=== PATIENT | female | born 1975 | race Two or more races ===

== ENCOUNTER 2021-09-14 02:39 | Emergency (ER) | payer MEDICAID, OTHER ==
[~2021-09-14] VITALS: Ht 162.6 cm; Wt 59.0 kg
[2021-09-14 03:43] LABS: Basophils # (auto) 0.1 10 ^3/uL (0-0.2); Basophils % (auto) 1.2 % (0.0-2.0); Hemoglobin 9.3 g/dL (12.2-16.2); Lymphocytes # (auto) 1.1 10 ^3/uL (0.4-5.4); Monocytes # (auto) 0.4 10 ^3/uL (0-1.3); Neutrophils # (auto) 3.9 10 ^3/uL (1.6-8.6); Red Cell Distribution Width 19.7 % (11.8-14.3)
[2021-09-14 03:45] LABS: Eosinophils # (auto) 0 10 ^3/uL (0-0.8); Eosinophils % (auto) 0.8 % (0.0-7.0); Lymphocytes % (auto) 20.8 % (10.0-50.0); Mean Corpuscular Hemoglobin 19.8 pg (28.0-32.0); Mean Corpuscular Volume 66.1 fL (80.0-100.0); Monocytes % (auto) 6.9 % (0.0-12.0); Neutrophils % (auto) 70.3 % (37.0-80.0); White Blood Cell 5.5 10^3/uL (4.4-10.8)
[2021-09-14 04:09] LABS: Albumin 3.1 g/dL (3.4-5.0); Magnesium 1.9 mg/dL (1.6-2.6)
[2021-09-14 04:14] LABS: BUN/Creatinine Ratio 20.2; Bilirubin, Total 0.3 mg/dL (0.2-1.0); Total Protein 6.7 g/dL (6.4-8.2)
[2021-09-14] MEDS ORDERED: LABETALOL HCL 200 MG TAB PO ONE (04:15)
[2021-09-14] MEDS ORDERED: SODIUM CHLORIDE 0.9% 1,000 ML IV ONE (04:15)
[2021-09-14 05:44] LABS: Amphetamine Screen, Urine NEGATIVE (NEGATIVE); Barbiturate Scree,Urine NEGATIVE (NEGATIVE); Benzodiazephine Screen, Urine NEGATIVE (NEGATIVE); Cannabinoid Screen, Urine NEGATIVE (NEGATIVE); Cocaine Screen, Urine NEGATIVE (NEGATIVE); Opiate Scree,Urine NEGATIVE (NEGATIVE); Phencyclidine Screen, Urine NEGATIVE (NEGATIVE)
[2021-09-14 05:47] LABS: Urine Bacteria FEW /hpf (None Seen); Urine Blood Negative /uL (Negative); Urine Specific Gravity 1.028 (1.001-1.035); Urine WBC 2 /hpf (0 - 5)
[2021-09-14 06:00] VITALS: BP 150/94
[2021-09-14] MEDS ORDERED: POTASSIUM EFFERVESENT TAB 25 MEQ PO ONE (06:15)
[2021-09-14] MEDS ORDERED: metFORMIN HYDROCHLORIDE 500 MG TAB PO ONE (06:45)
== END 2021-09-14 06:58 | disposition home or self-care (01) ==
LOC: ER 02:39
DX: E11.65 Type 2 diabetes mellitus with hyperglycemia (principal); I10 Essential (primary) hypertension
CPT/HCPCS: 36415; 80053; 80307; 81001; 82010; 82962; 83735; 84484; 84702; 85025; 96360; 96361; 99285; J7030

== ENCOUNTER 2022-08-15 02:34 | Emergency (ER) | payer MEDICAID ==
[~2022-08-15] VITALS: Ht 162.6 cm; Wt 58.5 kg
[2022-08-15 05:17] LABS: Basophils # (auto) 0.1 10 ^3/uL (0-0.2); Basophils % (auto) 1.1 % (0.0-2.0); Eosinophils # (auto) 0.1 10 ^3/uL (0-0.8); Hematocrit 30.7 % (36.0-46.0); Hemoglobin 9.4 g/dL (12.2-16.2); Lymphocytes # (auto) 1.2 10 ^3/uL (0.4-5.4); Lymphocytes % (auto) 18.3 % (10.0-50.0); Mean Corpuscular Hemoglobin 18.1 pg (28.0-32.0); Mean Corpuscular Hgb Conc. 30.6 g/dL (32.0-36.0); Mean Corpuscular Volume 59.3 fL (80.0-100.0); Monocytes # (auto) 0.5 10 ^3/uL (0-1.3); Monocytes % (auto) 6.9 % (0.0-12.0); Neutrophils # (auto) 4.8 10 ^3/uL (1.6-8.6); Neutrophils % (auto) 72.7 % (37.0-80.0); Red Blood Cells 5.18 10^6/uL (4.0-5.20); White Blood Cell 6.6 10^3/uL (4.4-10.8)
[2022-08-15 05:18] LABS: Red Cell Distribution Width 20.8 % (11.8-14.3)
[2022-08-15 05:19] LABS: Urine Bacteria NONE SEEN /hpf (None Seen); Urine Blood 3+ /uL (Negative); Urine WBC 3 /hpf (0 - 5)
[2022-08-15 05:35] LABS: Potassium 3.5 mmol/L (3.5-5.1)
[2022-08-15 05:40] LABS: Albumin 3.4 g/dL (3.4-5.0); BUN/Creatinine Ratio 19.3; Calcium 8.6 mg/dL (8.5-10.1)
[2022-08-15 05:54] LABS: Bilirubin, Total 0.4 mg/dL (0.2-1.0); Total Protein 6.9 g/dL (6.4-8.2)
[2022-08-15] MEDS ORDERED: LABETALOL HCL 5 MG/ML 4ML SYRINGE IV ONE (06:15)
[2022-08-15] MEDS ORDERED: SODIUM CHLORIDE 0.9% 1,000 ML IV ONE (08:15)
[2022-08-15] MEDS ORDERED: IOHEXOL 350 MG/ML 100ML IJ ONE (08:38)
[2022-08-15 09:17] VITALS: BP 170/102
== END 2022-08-15 09:34 | disposition left against medical advice (07) ==
LOC: ER 02:34
DX: I10 Essential (primary) hypertension (principal); E11.65 Type 2 diabetes mellitus with hyperglycemia; F17.210 Nicotine dependence, cigarettes, uncomplicated; Z88.6 Allergy status to analgesic agent
CPT/HCPCS: 36415; 71045; 80053; 81001; 83735; 83880; 84484; 85025; 85379; 93005; 96361; 96374; 99285; J3490; J7030; Q9967

== ENCOUNTER 2022-08-20 01:25 | Emergency (ER) | payer MEDICAID ==
[~2022-08-20] VITALS: Ht 162.6 cm; Wt 60.7 kg
[2022-08-20 02:07] VITALS: BP 181/99
[2022-08-20 03:04] LABS: Basophils # (auto) 0.1 10 ^3/uL (0-0.2); Eosinophils # (auto) 0.1 10 ^3/uL (0-0.8); Eosinophils % (auto) 1.3 % (0.0-7.0); Lymphocytes # (auto) 1.2 10 ^3/uL (0.4-5.4)
[2022-08-20 03:06] LABS: Hemoglobin 8.5 g/dL (12.2-16.2); Lymphocytes % (auto) 21.2 % (10.0-50.0); Mean Corpuscular Hgb Conc. 30.2 g/dL (32.0-36.0); Mean Corpuscular Volume 59.7 fL (80.0-100.0); Monocytes # (auto) 0.4 10 ^3/uL (0-1.3); Monocytes % (auto) 7.6 % (0.0-12.0); Neutrophils # (auto) 4.1 10 ^3/uL (1.6-8.6); Neutrophils % (auto) 68.9 % (37.0-80.0); Nucleated Red Blood Cells % 0.1 %; Red Blood Cells 4.69 10^6/uL (4.0-5.20); White Blood Cell 5.9 10^3/uL (4.4-10.8)
[2022-08-20 03:07] LABS: Red Cell Distribution Width 21.3 % (11.8-14.3)
[2022-08-20 03:21] LABS: BUN/Creatinine Ratio 23.2; Potassium 3.5 mmol/L (3.5-5.1)
[2022-08-20 03:23] LABS: Bilirubin, Total 0.3 mg/dL (0.2-1.0)
[2022-08-20] MEDS ORDERED: amLODIPine BESYLATE 5 MG TAB PO ONE (04:00)
== END 2022-08-20 08:20 | disposition left against medical advice (07) ==
LOC: ER 01:31
DX: J40 Bronchitis, not specified as acute or chronic (principal); E11.9 Type 2 diabetes mellitus without complications; I10 Essential (primary) hypertension; F17.210 Nicotine dependence, cigarettes, uncomplicated
CPT/HCPCS: 36415; 70450; 80053; 83880; 84484; 85025; 93005

== ENCOUNTER 2022-10-11 15:16 | Emergency (ER) | payer MEDICAID ==
[~2022-10-11] VITALS: Ht 162.6 cm; Wt 61.4 kg
[2022-10-11 16:57] VITALS: BP 173/93
[2022-10-11] MEDS ORDERED: IBUP600T27 PO (17:14)
[2022-10-11] MEDS ORDERED: IBUPROFEN 600 MG TAB PO ONE (17:15)
== END 2022-10-11 17:39 | disposition home or self-care (01) ==
LOC: ER 15:16
DX: M79.604 Pain in right leg (principal); I10 Essential (primary) hypertension; E11.9 Type 2 diabetes mellitus without complications; F17.210 Nicotine dependence, cigarettes, uncomplicated; Z88.8 Allergy status to other drugs, medicaments and biological substances

== ENCOUNTER 2022-10-22 06:37 | Emergency (ER) | payer MEDICAID ==
[~2022-10-22] VITALS: Ht 162.6 cm; Wt 63.1 kg
[~2022-10-22 06:37] MED LIST: IBUP600T27 PO
[2022-10-22 06:48] VITALS: BP 187/101
[2022-10-22] MEDS ORDERED: cloNIDine HCL 0.1 MG TAB PO ONE (07:00)
[2022-10-22 07:43] LABS: Basophils # (auto) 0.1 10 ^3/uL (0-0.2); Eosinophils # (auto) 0.1 10 ^3/uL (0-0.8); Hematocrit 27.4 % (36.0-46.0); Mean Corpuscular Volume 60.2 fL (80.0-100.0); Monocytes # (auto) 0.4 10 ^3/uL (0-1.3); Red Blood Cells 4.55 10^6/uL (4.0-5.20)
[2022-10-22 07:44] LABS: Basophils % (auto) 1.2 % (0.0-2.0); Eosinophils % (auto) 1.2 % (0.0-7.0); Hemoglobin 8.4 g/dL (12.2-16.2); Lymphocytes % (auto) 16.5 % (10.0-50.0); Mean Corpuscular Hemoglobin 18.4 pg (28.0-32.0); Mean Corpuscular Hgb Conc. 30.6 g/dL (32.0-36.0); Monocytes % (auto) 6.7 % (0.0-12.0); Neutrophils # (auto) 4.7 10 ^3/uL (1.6-8.6); Neutrophils % (auto) 74.4 % (37.0-80.0); White Blood Cell 6.3 10^3/uL (4.4-10.8)
[2022-10-22 07:47] LABS: Red Cell Distribution Width 20.5 % (11.8-14.3)
[2022-10-22 07:49] LABS: Albumin 3.2 g/dL (3.4-5.0); BUN/Creatinine Ratio 18.9; Calcium 8.7 mg/dL (8.5-10.1); Potassium 3.7 mmol/L (3.5-5.1)
[2022-10-22 08:14] LABS: Bilirubin, Total 0.3 mg/dL (0.2-1.0); Total Protein 6.4 g/dL (6.4-8.2)
== END 2022-10-22 10:30 | disposition left against medical advice (07) ==
LOC: ER 06:37
DX: R06.02 Shortness of breath (principal); R05.9 Cough, unspecified; R07.89 Other chest pain; Z87.891 Personal history of nicotine dependence; Z53.21 Procedure and treatment not carried out due to patient leaving prior to being seen by health care provider
CPT/HCPCS: 36415; 80053; 83880; 84484; 85025; 85379; 93005

== ENCOUNTER 2023-09-18 10:58 | Emergency (ER) | payer MEDICAID ==
[~2023-09-18 10:58] MED LIST changes: +IBUP-1454 PO; -IBUP600T27 PO
== END 2023-09-18 11:02 | disposition left against medical advice (07) ==
LOC: ER 10:58
DX: R00.2 Palpitations (principal); Z53.21 Procedure and treatment not carried out due to patient leaving prior to being seen by health care provider